=== PATIENT | male | born 1980 | race Caucasian/White ===

== ENCOUNTER 2021-09-02 18:23 | Emergency (ER) | payer OTHER ==
[2021-09-02 18:57] VITALS: BP 151/78; PULSE 104; RESP 18; TEMP 99.4
--- NOTE | 2021-09-02 19:30 | XR ---
EXAMINATION TYPE: XR ankle complete LT DATE OF EXAM: 09/02/2021 COMPARISON: NONE HISTORY: Pain TECHNIQUE: 3 views FINDINGS: Ankle mortise is anatomic. There is plantar and Achilles calcaneal spurring. I see no fract ure nor dislocation. IMPRESSION: Calcaneal spurring. No fracture seen.
--- NOTE | 2021-09-02 19:31 | XR ---
EXAMINATION TYPE: XR foot complete LT DATE OF EXAM: 09/02/2021 COMPARISON: NONE HISTORY: Pain TECHNIQUE: Review FINDINGS: Metatarsals are intact. I see no fracture nor dislocation. There is plantar and Achilles ca lcaneal spurring. IMPRESSION: Calcaneal spurring. No fracture.
[2021-09-02] MEDS ORDERED: KETOROLAC 15 MG/ML 1 ML VIAL IM STA (20:33)
--- NOTE | 2021-09-02 20:47 | ED ---
Lower Extremity Injury HPI - General Chief Complaint: Extremity Injury, Lower Stated Complaint: LT foot injury,[facility] Source: patient Mode of arrival: ambulatory - History of Present Illness Initial Comments: Patient is a 41-year-old male who presents to the emergency department with chief complaint left ankle and left foot pain. Patient states he was climbing off a trailer about 3.5 feet high when he slipped and landed on uneven frozen dirt. He did not hit his head or lose consciousness. Patient states he rolled his left ankle with an inversion injury. He was able to ambulate after the fall. Patient reports pain over the top of the foot near the ankle as well as the outside of his foot. He denies neurological symptoms such as weakness, numbness, and tingling. Patient states he is able to walk reveals that his ankles unsteady. He has been taking Advil for pain. - Related Data Previous Rx's Medication Instructions Recorded Ketorolac [Toradol] 10 mg PO Q8HR PRN 7 Days #21 tab 09/02/21 Allergies Allergy/AdvReac Type Severity Reaction Status Date / Time acetaminophen [From Vicodin] AdvReac Unknown Verified 09/02/21 18:58 hydrocodone [From Vicodin] AdvReac Unknown Verified 09/02/21 18:58 Review of Systems ROS Statement: Those systems with pertinent positive or pertinent negative responses have been documented in the HPI. ROS Other: All systems not noted in ROS Statement are negative. Past Medical History Past Medical History: No Reported History History of Any Multi-Drug Resistant Organisms: None Reported Past Surgical History: No Surgical Hx Reported Past Psychological History: No Psychological Hx Reported Smoking Status: Current every day smoker Past Alcohol Use History: None Reported Past Drug Use History: None Reported General Exam General appearance: alert, in no apparent distress Head exam: Present: atraumatic, normocephalic, normal inspection Eye exam: Present: normal appearance, PERRL, EOMI. Absent: scleral icterus, conjunctival injection, periorbital swelling Neck exam: Present: normal inspection, full ROM Respiratory exam: Present: normal lung sounds bilaterally. Absent: respiratory distress, wheezes, rales, rhonchi, stridor Cardiovascular Exam: Present: regular rate, normal rhythm, normal heart sounds. Absent: systolic murmur, diastolic murmur, rubs, gallop, clicks GI/Abdominal exam: Present: soft, normal bowel sounds. Absent: distended, tenderness, guarding, rebound, rigid Left Ankle exam: Present: normal inspection (No deformity, erythema, swelling, laceration, or abrasion of the medial and lateral ankle), full ROM. Absent: tenderness Foot/Toe exam: Present: normal inspection, full ROM, tenderness (Over the lateral aspect of the fifth metatarsal in the dorsal region of the talus), swelling (Small bump over the lateral fifth metatarsal). Absent: abrasion, laceration, ecchymosis, deformity, erythema, tenderness at base of 5th metatarsal Neurovascular tendon exam: Present: no vascular compromise. Absent: pulse deficit, abnormal cap refill, motor deficit, sensory deficit, tendon deficit, extremity cold to touch, pallor, decreased fine/light touch, foot drop, peroneal nerve deficit Gait: observed and limited by pain Neurological exam: Present: alert, oriented X3, CN II-XII intact Psychiatric exam: Present: normal affect, normal mood Skin exam: Present: warm, dry, intact, normal color. Absent: rash Course Vital Signs 09/02/21 18:53 Temperature 99.4 F Pulse Rate 104 H Respiratory 18 Rate Blood Pressure 151/78 O2 Sat by Pulse 98 Oximetry Medical Decision Making - Medical Decision Making This is a 41-year-old male who presents for evaluation of left ankle and left foot pain. Thorough history and examination were performed. There is a small region of swelling in the lateral fifth metatarsal region with tenderness and no overlying erythema. Patient is also tender in the dorsal region of the talus. He is neurovascularly intact. Left ankle and left foot x-ray are negative for fracture or dislocation. Patient was given Toradol for pain and placed in air splint. RICE education was provided. Return parameters discussed. Patient verbalizes understanding and is agreeable to plan. Dr. Arreola is my attending. Disposition Clinical Impression: Foot pain, left, Ankle pain, left Disposition: HOME SELF-CARE Condition: Good Instructions (If sedation given, give patient instructions): Ankle Sprain (ED) Additional Instructions: Please take medication as directed. You are encouraged to rest, ice, and elevate the ankle/foot. You may walk on the left ankle/foot as your pain tolerates. After 48 hours you may use heating pads to alleviate symptoms. Return to the emergency department if you experience new, concerning, or worsening symptoms. Prescriptions: Ketorolac [Toradol] 10 mg PO Q8HR PRN 7 Days #21 tab PRN Reason: Pain Is patient prescribed a controlled substance at d/c from ED?: No Referrals: None,Stated [Primary Care Provider] - 1-2 days Time of Disposition: 20:56
== END 2021-09-02 23:27 | disposition home or self-care (01) ==
LOC: EC 18:23
DX: M79.672 Pain in left foot (principal); M25.572 Pain in left ankle and joints of left foot; F17.200 Nicotine dependence, unspecified, uncomplicated; Z88.6 Allergy status to analgesic agent; Z88.5 Allergy status to narcotic agent
CPT/HCPCS: 73610; 73630; 99284; 96372; J1885